=== PATIENT | female | born 1955 | race African-American/Black ===

== ENCOUNTER 2016-12-06 12:01 | Emergency (ER) | payer OTHER, BC ==
[~2016-12-06] VITALS: Ht 170.2 cm; Wt 83.5 kg
[2016-12-06 12:03] VITALS: BP 172/85
[2016-12-06] MEDS ORDERED: KEFLEX500 MG PO (12:34)
[2016-12-06] MEDS ORDERED: ACETAMINOPHEN325 MG PO (12:42)
[2016-12-06] MEDS ORDERED: NORVASC5 MG PO (12:42)
[2016-12-06] MEDS ORDERED: ECPIRIN325 MG PO (12:42)
[2016-12-06] MEDS ORDERED: LIPITOR40 MG PO (12:42)
[2016-12-06] MEDS ORDERED: PHOSLO667 MG PO (12:43)
[2016-12-06] MEDS ORDERED: CARVEDILOL25 MG PO (12:43)
[2016-12-06] MEDS ORDERED: CATAPRES0.2 MG PO (12:43)
[2016-12-06] MEDS ORDERED: REGLAN 5 MG TAB5 MG PO (12:44)
[2016-12-06] MEDS ORDERED: ZESTRIL40 MG PO (12:44)
[2016-12-06] MEDS ORDERED: OMEPRAZOLE20 MG PO (12:45)
[2016-12-06] MEDS ORDERED: FLOMAX0.4 MG PO (12:45)
== END 2016-12-06 13:30 | disposition home or self-care (01) ==
LOC: ER 12:01
DX: L76.22 Postprocedural hemorrhage of skin and subcutaneous tissue following other procedure (principal); E11.9 Type 2 diabetes mellitus without complications; I10 Essential (primary) hypertension; E78.5 Hyperlipidemia, unspecified; Z90.710 Acquired absence of both cervix and uterus; Z88.8 Allergy status to other drugs, medicaments and biological substances; Z88.2 Allergy status to sulfonamides; Z88.1 Allergy status to other antibiotic agents